=== PATIENT | male | born 1950 | race Caucasian/White ===

== ENCOUNTER → 2017-01-26 | Outpatient (CLI) | payer BC ==
[~2017-01-26] MED LIST: ASPI81TA82 PO; BENI5TAB4 PO; CELE50CA OR; FLON0.053; IBUP800T23 PO; LEVO.2 PO; METH500T3 PO
--- NOTE | 2017-01-27 10:34 | RSPPFT ---
DATE OF PROCEDURE: 01/26/17 COMMENTS: VOLUMES DYNAMIC: FVC and FEV1 normal. STATIC: FRC, RV and TLC normal. FLOWS: FEV1% and FEF 25-75 normal. DIFFUSION: Normal. FLOW VOLUME LOOP: Normal configuration. IMPRESSION: Normal pulmonary functions with no significant airways obstruction or restriction and no improvement post-bronchodilator. Diffusion capacity is normal.
== END ==
LOC: HRSP 08:09
PROVIDERS: ATTEND Internal Medicine
DX: J44.9 Chronic obstructive pulmonary disease, unspecified (principal)
CPT/HCPCS: 94060; 94620; 94726; 94729; 95012

== ENCOUNTER 2017-09-10 22:45 | Emergency (ER) | payer BC ==
[2017-09-10 22:52] VITALS: BP 93/61; PULSE 84; RESP 18; TEMP 97.9; O2SAT 95
[2017-09-10] MEDS ORDERED: SODIUM CHLORIDE 0.9% FLUSH 10 ML FLUSH IVF PRN (23:30)
--- NOTE | 2017-09-10 23:32 | PD ---
HPI Chief Complaint: Syncope/Near-Syncope Time Seen by Provider: 23:07 Travel History International Travel<30 days: No Contact w/Intl Traveler<30days: No Traveled to known affect area: No History of Present Illness HPI 66-year-old male here for evaluation after syncopal episode. The patient was at a friend's house when the episode occurred. He admits to drinking some alcohol tonight. The episode was witnessed. The patient was standing by the stairs, felt lightheaded, diaphoretic, had tunnel vision, then slowly went to the ground. He did not sustain any injuries. He had a brief few second episode loss of consciousness. No seizure-like activity. He denies chest pain. One of his friends at the green party thought he may been having an [place], and gave him a sublingual nitroglycerin shortly after this event occurred. Upon arrival to the emergency department the patient complains of some weakness, otherwise he feels all right. No chest pain or dyspnea. No abdominal pain. No fevers or recent illness. He has no known history of cardiac disease. No previous syncopal episodes. No history of DVT or PE. PFSH Past Medical History Hypertension: Yes Thyroid Disease: Yes (HYPOTHYROID ) ?: Not Past Surgical History Other Surgery: Yes (HERNIA , VASTECOMY) Social History Alcohol Use: Yes Tobacco Use: No Substance Use: Yes (MARIJUANA ) Allergies-Medications (Allergen,Severity, Reaction): Coded Allergies: No Known Allergies (Unverified , 07/12/12) Reported Meds & Prescriptions Reported Meds & Active Scripts Active Reported Celebrex (Celecoxib) 50 Mg Cap Mg OR DAILY Ibuprofen 800 Mg Tab 800 Mg PO BIDPRN Aspir-81 (Aspirin) 81 Mg Tab 81 Mg PO DAILY Flonase (Fluticasone Propionate) 0.05 % Naspr 1 Spr NA DAILY 1 SPRAY EACH NOSTRIL Synthroid (Levothyroxine Sodium) 200 Mcg Tab 200 Mcg PO DAILY Benicar (Olmesartan) 5 Mg Tab 0 PO HS UNKNOWN DOSE Review of Systems Except as stated in HPI: all other systems reviewed are Neg Physical Exam Narrative GENERAL: Well-developed, well-nourished, comfortable, no apparent distress. SKIN: Focused skin assessment warm/dry. HEAD: Atraumatic. Normocephalic. EYES: Pupils equal and round. No scleral icterus. No injection or drainage. ENT: Mucous membranes pink and moist. NECK: Trachea midline. No JVD. CARDIOVASCULAR: Regular rate and rhythm. No murmur appreciated. RESPIRATORY: No accessory muscle use. Clear to auscultation. Breath sounds equal bilaterally. GASTROINTESTINAL: Abdomen soft, non-tender, nondistended. MUSCULOSKELETAL: No obvious deformities. No clubbing. No cyanosis. No edema. NEUROLOGICAL: Awake and alert. No obvious cranial nerve deficits. Motor grossly within normal limits. Normal speech. PSYCHIATRIC: Appropriate mood and affect; insight and judgment normal. Data Data Last Documented VS Vital Signs Date Time Temp Pulse Resp B/P (MAP) Pulse Ox O2 Delivery O2 Flow Rate FiO2 09/10/17 22:52 97.9 84 18 93/61 (72) 95 Orders Orders Electrocardiogram (09/10/17 23:17) Complete Blood Count With Diff (09/10/17 23:17) Comprehensive Metabolic Panel (09/10/17 23:17) Ckmb (Isoenzyme) Profile (09/10/17 23:17) Troponin I (09/10/17 23:17) Act Partial Throm Time (Ptt) (09/10/17 23:17) Prothrombin Time / Inr (Pt) (09/10/17 23:17) Chest, Single Ap (09/10/17 23:17) Ecg Monitoring (09/10/17 23:17) Iv Access Insert/Monitor (09/10/17 23:17) Oximetry (09/10/17 23:17) Sodium Chloride 0.9% Flush (Ns Flush) (09/10/17 23:30) Alcohol (Ethanol) (09/10/17 23:17) Sodium Chlor 0.9% 1000 Ml Inj (Ns 1000 M (09/10/17 23:45) CKMB (09/10/17 23:20) CKMB% (09/10/17 23:20) Troponin I (09/11/17 02:00) Ckmb (Isoenzyme) Profile (09/11/17 02:00) Electrocardiogram (09/11/17 ) Troponin I (09/11/17 01:45) CKMB (09/11/17 01:45) CKMB% (09/11/17 01:45) Labs Laboratory Tests Test 09/10/17 23:20 09/11/17 01:45 White Blood Count 6.7 TH/MM3 Red Blood Count 4.92 MIL/MM3 Hemoglobin 14.6 GM/DL Hematocrit 42.3 % Mean Corpuscular Volume 85.9 FL Mean Corpuscular Hemoglobin 29.8 PG Mean Corpuscular Hemoglobin Concent 34.7 % Red Cell Distribution Width 13.4 % Platelet Count 185 TH/MM3 Mean Platelet Volume 7.6 FL Neutrophils (%) (Auto) 66.7 % Lymphocytes (%) (Auto) 19.5 % Monocytes (%) (Auto) 6.5 % Eosinophils (%) (Auto) 6.5 % Basophils (%) (Auto) 0.8 % Neutrophils # (Auto) 4.5 TH/MM3 Lymphocytes # (Auto) 1.3 TH/MM3 Monocytes # (Auto) 0.4 TH/MM3 Eosinophils # (Auto) 0.4 TH/MM3 Basophils # (Auto) 0.1 TH/MM3 CBC Comment DIFF FINAL Differential Comment Prothrombin Time 10.0 SEC Prothromb Time International Ratio 1.0 RATIO Activated Partial Thromboplast Time 24.5 SEC Blood Urea Nitrogen 21 MG/DL Creatinine 1.66 MG/DL Random Glucose 134 MG/DL Total Protein 7.6 GM/DL Albumin 4.1 GM/DL Calcium Level 8.5 MG/DL Alkaline Phosphatase 67 U/L Aspartate Amino Transf (AST/SGOT) 32 U/L Alanine Aminotransferase (ALT/SGPT) 37 U/L Total Bilirubin 0.5 MG/DL Sodium Level 135 MEQ/L Potassium Level 3.6 MEQ/L Chloride Level 101 MEQ/L Carbon Dioxide Level 22.8 MEQ/L Anion Gap 11 MEQ/L Estimat Glomerular Filtration Rate 42 ML/MIN Total Creatine Kinase 412 U/L 322 U/L Creatine Kinase MB 17.6 NG/ML 13.6 NG/ML Creatine Kinase MB % 4.3 % 4.2 % Troponin I 0.03 NG/ML 0.03 NG/ML Ethyl Alcohol Level 5 MG/DL [facility] Medical Decision Making Medical Screen Exam Complete: Yes Emergency Medical Condition: Yes Interpretation(s) EKG: Sinus, rate 77, normal axis, normal intervals, no acute ischemic abnormality. Differential Diagnosis Syncope, dysrhythmia, ACS, metabolic abnormality Narrative Course Initial vital signs show heart rate 84, blood pressure 93/61, pulse ox 95% on room air, oral temp of 97.9F. Blood pressure improved to 128/80 after a liter of normal saline IV. CBC is unremarkable. CMP is remarkable for BUN 21, creatinine 1.66, GFR 42 which is slightly worse than his baseline. Total CK is 412. CK-MB of 17.6, CK-MB percent of 4.3%. Troponin is 0.03. Alcohol level is 5. Chest x-ray: No acute cardiopulmonary abnormality is identified. 12:30 AM: The patient is resting comfortably, states he feels well. Again he did not have any chest pain tonight. No dyspnea. I told him I would like to perform a delta troponin 3 hours after the first to be safe, and if negative he can be discharged home with follow-up with his primary care physician whom he has an appointment with this week. Repeat troponin is 0.03. Repeat CK is 322. Repeat CK-MB is 13.6. Repeat CK-MB percent is 4.2%. Repeat EKG is the same as the first, no changes, no ischemic abnormalities. Patient was made aware of all findings. He is resting comfortably. Again he did not have any chest pain today. He denies any history of cardiac disease. His EKG shows no signs of ischemia. Patient states he would like to be discharged home as he has a follow-up upon with his primary care physician on Tuesday of this week. I will discharge him home with strict return instructions. Diagnosis Primary Impression: Syncope Qualified Codes: R55 - Syncope and collapse Referrals: Primary Care Physician 3 days Additional Instructions: Follow-up with your primary care physician this week as scheduled. Return to the emergency department for worsening symptoms or any other concerns. Disposition: 01 DISCHARGE HOME Condition: Stable Sergio Escalona MD Sep 10, 2017 23:32
--- NOTE | 2017-09-10 23:40 | RADRPT ---
EXAM DATE/TIME: 09/10/2017 23:25 [place] COMPARISON: No previous studies available for comparison. INDICATIONS : Syncopal episode. MEDICAL HISTORY : Hypertension. Asthma SURGICAL HISTORY : None. ENCOUNTER: Initial ACUITY: 1 day PAIN SCORE: 0/10 LOCATION: Bilateral chest FINDINGS: Portable AP view of the chest demonstrates a normal-sized cardiac silhouette. No effusion, consolidat ion, or pneumothorax is visualized. The bones and soft tissues demonstrate no acute abnormality. EKG lines overlie the patient. CONCLUSION: No acute cardiopulmonary abnormality is identified. Rafael Phelps MD on September 10, 2017 at 23:37 Board Certified Radiologist. This report was verified electronically.
[2017-09-10] MEDS ORDERED: SODIUM CHLOR 0.9% 1000 ML INJ 1,000 ML IV ONE (23:45)
[2017-09-10 23:57] LABS: AUTOMATED NEUTROPHIL # 4.5 TH/MM3 (1.8-7.7); BASOPHIL # 0.1 TH/MM3 (0-0.2); BASOPHIL % 0.8 % (0.0-2.0); EOSINOPHIL # 0.4 TH/MM3 (0-0.4); EOSINOPHIL % 6.5 % (0.0-4.0); HEMATOCRIT 42.3 % (39.0-51.0); HEMO FLAGS DIFF FINAL; LYMPH % 19.5 % (9.0-44.0); LYMPHOCYTE # 1.3 TH/MM3 (1.0-4.8); MEAN CELL VOLUME 85.9 FL (80.0-100.0); MEAN CORPUSCULAR HEMOGLOBIN 29.8 PG (27.0-34.0); MEAN CORPUSCULAR HGB CONC 34.7 % (32.0-36.0); MONO % 6.5 % (0.0-8.0); NEUT % 66.7 % (16.0-70.0); PLATELET COUNT 185 TH/MM3 (150-450); RED BLOOD COUNT 4.92 MIL/MM3 (4.50-5.90); RED CELL DISTRIBUTION WIDTH 13.4 % (11.6-17.2); WHITE BLOOD COUNT 6.7 TH/MM3 (4.0-11.0)
[2017-09-11 00:05] LABS: APTT (PATIENT) 24.5 SEC (24.3-30.1)
[2017-09-11 00:16] LABS: ANION GAP 11 MEQ/L (5-15); AST (GOT) 32 U/L (15-37); BICARBONATE 22.8 MEQ/L (21.0-32.0); BLOOD UREA NITROGEN 21 MG/DL (7-18); CHLORIDE 101 MEQ/L (98-107); GLOMERULAR FILTRATION RATE 42 ML/MIN (>89); POTASSIUM 3.6 MEQ/L (3.5-5.1); SODIUM (NA) 135 MEQ/L (136-145)
[2017-09-11 00:17] LABS: ALCOHOL 5 MG/DL (0-5); ALT (GPT) 37 U/L (12-78)
[2017-09-11 00:21] LABS: ALKALINE PHOSPHATASE 67 U/L (45-117); CREATINE KINASE 412 U/L (39-308); TOTAL BILIRUBIN ADULT 0.5 MG/DL (0.2-1.0)
[2017-09-11 00:33] LABS: CKMB 17.6 NG/ML (0.5-3.6)
[2017-09-11 02:57] LABS: CKMB 13.6 NG/ML (0.5-3.6)
--- NOTE | 2017-09-11 22:17 | EKG ---
Date Performed: 09/11/2017 Time Performed: 01:54:09 PTAGE: 66 years EKG: Sinus rhythm NORMAL ECG PREVIOUS TRACING : 09/10/2017 23.13 Compared to prior tracing no significant change DOCTOR: Javier Greco Interpretating Date/Time 09/11/2017 22:17:24
--- NOTE | 2017-09-11 22:21 | EKG ---
Date Performed: 09/10/2017 Time Performed: 23:13:10 PTAGE: 66 years EKG: Sinus rhythm NORMAL ECG NO PREVIOUS TRACING DOCTOR: Javier Greco Interpretating Date/Time 09/11/2017 22:19:58
== END 2017-09-11 04:10 | disposition home or self-care (01) ==
LOC: NEPE 22:45
DX: R55 Syncope and collapse (principal); R53.1 Weakness; I10 Essential (primary) hypertension; E03.9 Hypothyroidism, unspecified; Z79.899 Other long term (current) drug therapy
CPT/HCPCS: 71010; 80053; 80307; 82550; 82552; 84484; 85025; 85610; 85730; 93005; 99285; J7030